=== PATIENT | male | born 1995 | race Caucasian/White ===

== ENCOUNTER 2018-06-14 08:53 | Emergency (ER) | payer OTHER, SELFPAY ==
[2018-06-14 09:11] VITALS: BP 115/51; PULSE 94; RESP 20; TEMP 37.6; O2SAT 95; BMI 24.3
--- NOTE | 2018-06-14 09:32 | ED.URI ---
HPI - URI/Sore Throat General Chief Complaint: Upper Respiratory Symptoms Stated Complaint: Thinks flu or strep Time Seen by Provider: 06/14/18 09:32 Source: patient Mode of arrival: ambulatory Limitations: no limitations History of Present Illness HPI Narrative: This is a 22-year-old male comes emergency department with complaint of fevers on and off for 4 days. Patient states he has had a little bit of sore throat, little bit of nasal congestion. He states he has been up to 101 F documented home most recently last night. He has had a mild cough but nothing productive. He does not have any chest congestion. Patient states his skin feels sort of sensitive all over but not painful. He has not had any rashes. he has had a little bit a headache, little bit of discomfort from the throat into the neck. The patient states that he has had swollen tonsils. He denies any nausea, no vomiting. he has had a few episodes of loose stools, no urinary issues. Patient states he does not have any other medical problems. He did have mono last year. He denies any surgeries. He does not smoke regularly. Primary care is through [facility]. Related Data Home Medications Medication Instructions Recorded Confirmed No Known Home Medications 06/14/18 06/14/18 Allergies Allergy/AdvReac Type Severity Reaction Status Date / Time No Known Drug Allergies Allergy Verified 06/14/18 09:14 Review of Systems Review of Systems ROS Unobtainable: All systems reviewed & are unremarkable except as noted in HPI and below Constitutional Denies chills, Reports fever(s), Reports headache(s) (mild), Denies lethargy, Reports night sweats and Denies weakness ENT Ears, Nose, Mouth, and Throat: Denies ear discharge, Reports otalgia, Reports headache(s) (mild), Denies hoarseness, Reports nasal discharge (very mild), Denies neck pain, Reports post nasal drip, Denies sinus pain, Denies sinus pressure, Reports sore throat and Reports throat swelling (tonsil swollen, not throat) Cardiovascular Denies chest pain, Denies dyspnea and Denies dyspnea on exertion Respiratory Denies change in phlegm color, Denies chest congestion, Reports cough, Denies dyspnea, Denies dyspnea on exertion, Denies stridor and Denies wheezing Gastrointestinal Gastrointestinal: Denies abdominal pain, Denies change in bowel habits, Denies diarrhea, Reports loose stools, Denies nausea and Denies vomiting Genitourinary Denies hematuria, Denies dysuria, Denies flank pain and Denies urinary frequency Musculoskeletal Denies myalgias, Denies arthralgias and Denies neck pain Integumentary/Breasts Denies rash and Reports other (feels sensitive.) Neurologic Reports headache(s) (mild) and Denies weakness Allergic/Immunologic Reports throat swelling (tonsil swollen, not throat) and Denies wheezing PFSH Social History Smoking Status: Never smoker Social History Smoking Status: Never smoker Exam Narrative Exam Narrative: GEN: well nourished, well appearing male, alert and oriented x 3, patient appears to be in mild distress. HEENT: Atraumatic, pupils are equal round reactive to light, extraocular movements are intact, nares are clear, TMs are clear with no fluid. Throat slightly erythematous, scant exudates, bilateral tonsillar enlargement no uvular deviation. Some mild lymphadenopathy bilaterally. patient does not have any pain with motion of the neck or flexion-extension. No meningeal signs. HEART: Regular rate and rhythm without murmur, clicks, rubs. LUNGS:Lungs clear to auscultation, no wheezes, rales, crackles, chest moves symmetrically, no tachypnea. ABD:bowel sounds normal, soft, non-tender, no guarding, rebound, rigidity, no masses noted, no hepatosplenomegaly MSCL: Non-tender, muscles strength 5/5 upper and lower extremities, full range of motion, normal gait NEURO:CN 2-12 intact, sensation normal Initial Vital Signs Initial Vital Signs: Vital Signs Temperature 99.7 F H 06/14/18 09:11 Pulse Rate 94 H 06/14/18 09:11 Respiratory Rate 20 06/14/18 09:11 Blood Pressure 115/51 L 06/14/18 09:11 Pulse Oximetry 95 06/14/18 09:11 Course Orders Ordered: ED Orders 06/14/18 10:31 Throat Culture Stat Discontinued Medications Dexamethasone (Decadron) 10 mg PO NOW ONE Stop: 06/14/18 10:16 Last Admin: 06/14/18 10:25 Dose: 10 mg Vital Signs - 8 hr 06/14/18 10:47 Temperature 99.2 F Pulse Rate 93 H Respiratory Rate 15 Blood Pressure [Left Arm] 107/91 H Pulse Oximetry 98 MDM - URI/Sore Throat Lab Data Attestation: I reviewed the patient's lab results. Lab Results 06/14/18 Range/Units 09:05 Influenza A & B (PCR) Negative (Negative) Point of Care Testing Rapid Strep A Negative [facility] Narrative Medical decision making narrative: Patient's throat does look suspicious he has tonsillar enlargement bilaterally, fevers with exudates. he does have a little bit of cough but patient does meet several center criteria. Throat culture was sent as patient could potentially have a false negative rapid strep. Patient was given instructions for return. I was given a single dose of Decadron. Discharge Plan Departure Patient Disposition: Home Clinical Impression: Pharyngitis Discharge Date/Time: 06/14/18 11:04 Interventions: ED Discharge Assessment Last Done: 06/14/18 11:03 Instructions: DI for Pharyngitis/Tonsillopharyngitis -- Adult Activity Restrictions/Additional Instructions: Follow up with your primary care physician in the next 3-5 days if no improvement. Your rapid strep is negative and influenza is negative. A throat culture has been sent, it take 24-48 hours to return, if positive you should expect a phone call to notify you and get you started on antibiotics. Continue ibuprofen up to 800 mg every 8 hours and/or Tylenol up to a 1000 mg every 8 hours as needed for fevers. Return to the emergency department for any passing out, new chest pain, shortness of breath, persistent vomiting, swelling of the throat, having difficulty breathing or stridor, inability to swallow liquids or your own saliva other new or concerning symptoms. Prescriptions: No Action No Known Home Medications RF: 0 Referrals: Jamaal Esparza PA-C [Primary Care Provider] -
[2018-06-14 09:51] LABS: Influenza A and B by PCR Rapid Negative (Negative)
[2018-06-14] MEDS: DEXAMETHASONE 10 MG/ML VIAL PO (10:25)
[2018-06-14 10:47] VITALS: BP 107/91; PULSE 93; RESP 15; TEMP 37.3; O2SAT 98
== END 2018-06-14 11:04 | disposition home or self-care (01) ==
PROVIDERS: Emergency Provider Emergency Medicine; PCP Physician Assistant
DX: J02.9 Acute pharyngitis, unspecified (principal)
CPT/HCPCS: 87070; 87400; 87880; 99282; 99283; J1100